=== PATIENT | male | born 1950 | race Caucasian/White ===

== ENCOUNTER 2020-02-01 16:49 | Emergency (ER) | payer BC ==
[~2020-02-01] VITALS: Ht 182.9 cm; Wt 111.1 kg
[2020-02-01 16:55] VITALS: Ht 182.9 cm; Wt 111.1 kg
[2020-02-01 21:21] VITALS: BP 121/56
== END 2020-02-01 21:21 | disposition home or self-care (01) ==
LOC: ED 16:49
DX: T84.020A Dislocation of internal right hip prosthesis, initial encounter (principal); W18.2XXA Fall in (into) shower or empty bathtub, initial encounter; Y93.E1 Activity, personal bathing and showering; Y92.091 Bathroom in other non-institutional residence as the place of occurrence of the external cause; Y99.8 Other external cause status; E11.9 Type 2 diabetes mellitus without complications; M10.9 Gout, unspecified; M19.90 Unspecified osteoarthritis, unspecified site; Z98.890 Other specified postprocedural states
CPT/HCPCS: J1885; J2270; J2405; J2704; J7030; Q0092